=== PATIENT | male | born 1965 | race Caucasian/White ===

== ENCOUNTER 2021-05-12 00:12 | Inpatient (IN) | payer OTHER, SELFPAY ==
[2021-05-12] VITALS (43 sets, daily range): BP systolic 114–165; BP diastolic 55–94; PULSE 62–76; RESP 13–31; TEMP 36.3–37.1; O2SAT 85–99; BMI 34.3
--- NOTE | 2021-05-12 | DI.US.S_ITS ---
PROCEDURE: US ABDOMEN LIMITED INDICATIONS: ELEVATED LFTS; POSSIBLE PORTAL VEIN THROMBOSIS TECHNIQUE: Real-time focused scanning was performed of the abdomen, with image documentation. COMPARISON: [facility], US, US ABDOMEN LIMITED, 06/22/2020, 13:52. FINDINGS: This study is limited by body habitus. The liver demonstrates prominent size. The liver demonstrates generalized moderately increased echogenicity. This decreases ultrasound sensitivity for detection of hepatic masses. The main portal vein is poorly seen, yet demonstrates normal size and demonstrates normal appearing, hepatopetal flow. Blood seen in the gallbladder. The gallbladder wall is minimally thickened, measuring 3.6 mm. No specific pericholecystic fluid is seen. The sonographic Black sign is negative. There is no biliary dilatation, the common bile duct measures 5-6 mm. Pancreas is not seen. No ascites is seen. IMPRESSION: The portal vein is poorly seen, yet is patent. Enlarged, fatty liver. Sludge can be seen within the gallbladder, with minimal gallbladder wall thickening. No additional sonographic signs of cholecystitis are seen. No ascites is seen. Dictated by: Estevan Sage M.D. on 05/12/2021 at 9:24 Approved by: Estevan Sage M.D. on 05/12/2021 at 9:26
[2021-05-12] MEDS: SODIUM CHLORIDE 0.9% 1,000 ML 1000 ML IV (00:23)
[2021-05-12] MEDS: PANTOPRAZOLE 40 MG VIAL IV ×2 (00:23→10:28)
[2021-05-12] MEDS: LIDOCAINE 2% (GLYDO) 6 ML GEL TOP (00:24)
[2021-05-12] MEDS: LIDO 1%/SOD BICARB 8.4% (10ML) 10 ML SYRINGE INJ (00:24)
[2021-05-12] MEDS: PHENobarbital 65 MG/ML VIAL 260 MG IV (00:28)
[2021-05-12 00:31] LABS: INR 1.4 (0.9-1.3); Prothrombin Time 15.7 SECONDS (10.1-12.7)
[2021-05-12 00:34] LABS: Add Manual Diff / Slide Review NO; Ammonia (NH3) 20 umol/L (9-30); Basophils Absolute Auto 200 /uL (0-100); Basophils Percent Auto 2.4 % (0-2); Eosinophils Absolute Auto 200 /uL (0-450); Eosinophils Percent Auto 2.7 % (2-4); Hematocrit 35.9 % (41-53); Hemoglobin 12.1 g/dL (13.5-17.5); Lymphocytes Absolute Auto 1400 /uL (1100-4500); Mean Corpuscular HGB Conc 33.7 % (30-36); Mean Corpuscular Hemoglobin 30.5 PG (26-34); Mean Corpuscular Volume 90.5 fL (80-100); Monocytes Absolute Auto 1200 /uL (0-900); Monocytes Percent Auto 16.1 % (3-14); Neutrophils Absolute Auto 4400 /uL (1500-7000); Neutrophils Percent Auto 59.8 % (50-75); Platelet Count 59 X10^3/uL (150-400); Red Blood Cell Count 3.97 X10^6/uL (4.5-5.9); Red Cell Distribution Width 16.5 % (11.6-14.8); White Blood Cell Count 7.4 X10^3/uL (4.5-11.0)
[2021-05-12 00:35] LABS: Ethanol (ETOH) < 10 mg/dL
[2021-05-12 00:36] LABS: Alanine Aminotransferase 33 IU/L (<50); Albumin 3.8 g/dL (3.5-5.0); Albumin Globulin Ratio 0.9 (1.0-2.8); Alkaline Phosphatase 173 U/L (38-126); Aspartate Aminotransferase 124 IU/L (17-59); BUN Creatinine Ratio 16.5 (6-22); Bilirubin Total 9.7 mg/dL (0.2-1.3); Blood Urea Nitrogen 17 mg/dL (9-20); Calcium 9.1 mg/dL (8.4-10.2); Carbon Dioxide 27 mmol/L (22-32); Chloride 96 mmol/L (98-107); Estimated Glomerular Filt Rate > 60.0 mL/min (>60); Globulin 4.1 g/dL (1.7-4.1); Glucose 163 mg/dL (70-100); HEMOLYSIS < 15 (0-50); Lipase 312 U/L (23-300); Magnesium 1.6 mg/dL (1.6-2.3); Potassium 3.8 mmol/L (3.4-5.1); Sodium 136 mmol/L (137-145); Total Protein 7.9 g/dL (6.3-8.2)
--- NOTE | 2021-05-12 01:13 | P.HP_ITS ---
History of Present Illness History of Present Illness Date Patient Seen: 05/12/21 Time Patient Seen: 02:00 Chief complaint: seizure, tongue hemorrhage Narrative: Mr. Banks is a 55M with PMH of EtOH abuse, EtOH cirrhosis who presents to the hospital after a seizure, found to have significant tongue laceration. History obtained from patient and . Patient has a long history of EtOH abuse and has had EtOH seizure and withdrawal in the past. Has been to inpatient rehab and tried to quit in the past. He was apparently admitted to [facility] one year ago and diagnosed with cirrhosis and found to have esophageal varices, he is currently on nadolol. Last EGD was this year, but unclear exactly when. He also has had ascites in the past, required para centesis, and is currently on spironolactone. He has had more difficulty with drinking this year, he states he thinks he drinks 3 alcoholic drinks a day usually. His last drink was 24 hours ago. He said for months he has felt anxious, he notes especially after stopping drinking his anxiety and tremu lousness increased. Prior to arrival he had a witnessed tonic clonic seizure episode. He was brought in to the ED. In the ED workup was done, vitals notable for hypoxemia with his O2 in the 80s. Labs notable for WBC 7.4, hgb 12.1, plts 59, ammonia 20, EtOH not detectable. INR 1.4, Na 136. Creatinine 1.03, Bilirubin 9.7, AST 124, ALT 33, alk phos 173. He was actively bleeding from a large tongue laceration. ENT was consulted and came to the ED and performed bedside hemostasis with suturing of his tongue laceration. He did have tongue swelling and did get dexamethasone, and IV unasyn. He also received 260mg IV phenobarbital. He was admitted for further treatment. Family history: Father with lung cancer, Patient History Family & Social History Safety & Behavioral: Feels Safe in Current Yes Environment Tobacco & Substance use: Smoking Status Never smoker alcohol intake frequency 3 or more drinks per day Substance Use Type does not use Meds Home Medications and Allergies Allergies Allergy/AdvReac Type Severity Reaction Status Date / Time sulfamethoxazole Allergy Verified 05/12/21 01:13 PDT [From Bactrim] trimethoprim [From Bactrim] Allergy Verified 05/12/21 01:13 PDT Review of Systems Review of Systems Narrative: 14 systems reviewed and negative aside from what is noted in HPI Exam Vital Signs (past 8 hours): - 05/12/21 00:14 05/12/21 00:20 05/12/21 00:30 Temperature 97.3 F L Pulse Rate 63 63 62 Respiratory Rate 18 23 21 Blood Pressure 114/66 Pulse Oximetry 85 L 91 93 05/12/21 00:31 05/12/21 01:00 PDT 05/12/21 01:32 PDT Temperature Pulse Rate 63 69 71 Respiratory Rate 20 17 20 Blood Pressure 138/75 136/72 144/94 H Pulse Oximetry 94 97 98 Oxygen Delivery Method Room Air Narrative Exam Narrative: GEN: mildly anxious HEENT: large laceration sutured, with moderate tongue swelling, no active bleeding, PERRL NECK: trachea midline, no JVD CV: regular rate and rhythm, no murmurs PULM: clear bilaterally, no wheezes, rhonchi, rales ABD: soft, nontender, nondistended, no organomegaly, normal bowel sounds EXT: warm and well perfused with no edema NEURO: awake and alert, no focal deficits, tremulous PSYCH: pleasant, anxious Objective Labs Result Diagrams: 05/12/21 00:14 05/12/21 00:14 Labs: Laboratory Results - last 24 hr 05/12/21 05/12/21 05/12/21 00:14 00:14 00:14 WBC 7.4 RBC 3.97 L Hgb 12.1 L Hct 35.9 L MCV 90.5 MCH 30.5 MCHC 33.7 RDW 16.5 H Plt Count 59 L Neut % (Auto) 59.8 Lymph % (Auto) 19.0 L [place] % (Auto) 16.1 H Eos % (Auto) 2.7 Baso % (Auto) 2.4 H Neut # (Auto) 4400 Lymph # (Auto) 1400 [place] # (Auto) 1200 H Eos # (Auto) 200 Baso # (Auto) 200 H PT INR Sodium Potassium Chloride Carbon Dioxide BUN Creatinine Estimated GFR BUN/Creatinine Ratio Glucose Calcium Magnesium Total Bilirubin AST ALT Alkaline Phosphatase Ammonia 20 Total Protein Albumin Globulin Albumin/Globulin Ratio Lipase Ethyl Alcohol < 10 05/12/21 05/12/21 00:14 00:14 WBC RBC Hgb Hct MCV MCH MCHC RDW Plt Count Neut % (Auto) Lymph % (Auto) Cocke % (Auto) Eos % (Auto) Baso % (Auto) Neut # (Auto) Lymph # (Auto) [place] # (Auto) Eos # (Auto) Baso # (Auto) PT 15.7 H INR 1.4 H Sodium 136 L Potassium 3.8 Chloride 96 L Carbon Dioxide 27 BUN 17 Creatinine 1.03 Estimated GFR > 60.0 BUN/Creatinine Ratio 16.5 Glucose 163 H Calcium 9.1 Magnesium 1.6 Total Bilirubin 9.7 H AST 124 H ALT 33 Alkaline Phosphatase 173 H Ammonia Total Protein 7.9 Albumin 3.8 Globulin 4.1 Albumin/Globulin Ratio 0.9 L Lipase 312 H Ethyl Alcohol Assessment & Plan Assessment & Plan narrative: Mr. Banks is a 55M with PMH of EtOH abuse, EtOH cirrhosis who presents with a seizure and alcohol withdrawal complicated by tongue bite with laceration, bleeding and traumatic macroglossia. 1. Alcohol withdrawal with seizure, acute -patient states he drinks approx 3 etoh drinks daily, suspect may be minimizing -last drink 24 hours prior to presentation -received 260mg IV phenobarb in ED -on exam still withdrawing, will order additional 130mg IV -order IV phenobarb 130m IV q1hr PRN for RASS>1 -SW, dietary consult, patient interested in quitting drinking -IV thiamine, MVI, folate ordered 2. Tongue laceration with arterial bleeding, traumatic macroglossia -s/p repair with ENT, Dr. Landon -did received IV dexamethasone -monitor closely for airway compromise -ice tongue as much as possible -trend hemoglobin closely -ENT recs if bleeding further hold pressure, follow up in ENT as outpatient in 1-2 weeks, continue IV unasyn 3. Alcoholic cirrhosis with history of decompensation due to ascites and esophageal varices, MELD 20 on admit -bilirubin on admission >9, baseline unknown -trend daily -order for abdominal ultrasound, with doppler to eval for portal vein thrombosis -continue nadolol -hold spironolactone given acute bleeding 4. Thrombocytopenia -secondary to EtOH abuse, cirrhosis 5. Anemia -secondary to acute bleeding -trend hemoglobin, transfuse if hgb <7 CODE: Full Proxy: Junie Banks, I have utilized all available immediate resources to obtain, update, or review the patient's current medications. Time Spent With Patient Critical Care time: I spent a total of [] minutes of critical care time on this patient's care today; this time is exclusive of procedural time.
--- NOTE | 2021-05-12 01:18 | ED_ITS ---
HPI - Seizure General Chief Complaint: Seizure Stated Complaint: seizure Time Seen by Provider: 05/12/21 00:19 Source: patient and EMS Mode of arrival: EMS Limitations: altered mental status History of Present Illness HPI Narrative: 55M nonsmoker with extensive history of alcohol abuse and recent diagnosis of liver failure presents by EMS for evaluation witnessed generalized tonic-clonic seizure just prior to arrival. Patient has a significant laceration to the tongue which is bleeding profusely, on arrival EMS found patient to be postictal which has improved significantly prior to his arrival. His vital signs have been stable. He states his last drink was about 24 hours ago. He has gone through withdrawals and has had 1 prior seizure which is likely due to withdrawals. Other than his tongue he has no other injuries. Related Data Allergies Allergy/AdvReac Type Severity Reaction Status Date / Time sulfamethoxazole Allergy Verified 05/12/21 01:13 PDT [From Bactrim] trimethoprim [From Bactrim] Allergy Verified 05/12/21 01:13 PDT Review of Systems Review of Systems Narrative: GENERAL: Denies chills, fatigue, malaise, fever, sweats. HEENT: See HPI RESPIRATORY: Denies dyspnea, cough, wheezing, hemoptysis, sputum. CARDIOVASCULAR: Denies chest pain, palpitations, orthopnea, edema, GASTROINTESTINAL: Denies nausea, vomiting, abdominal pain, diarrhea, constipation, melena. : Denies dysuria, frequency, incontinence, hematuria, urinary retention. MUSCULOSKELETAL: denies weakness, joint pain, or bony pain SKIN: See HPI er NEUROLOGIC: See HPI PSYCHIATRIC: No concerning psychosocial issues. 12 point review of systems is negative except for those stated above Patient History Social History Smoking Status: Never smoker Smoking Status: Never smoker alcohol intake frequency: 3 or more drinks per day Substance Use Type: does not use Exam Narrative Exam Narrative: GENERAL: [55 year old patient appears stated age. Well-developed patient, in obvious distress, still slightly confused HEAD: Atraumatic. Normocephalic. EYES: Pupils equal round and reactive. Extraocular motions intact. Scleral icterus No injection or drainage. ENT: Nose without bleeding, purulent drainage. 4 cm through and through laceration of the tongue, in the midline without crossing lateral edges, there is significant bleeding and an arterial component noted Throat without erythema, tonsillar hypertrophy or exudate. Airway patent. NECK: Trachea midline. Non tender CARDIOVASCULAR: Tachycardic but regular rhythm without murmurs, gallops, or rubs. RESPIRATORY: Clear to auscultation. Breath sounds equal bilaterally. No wheezes, rales, or rhonchi. GASTROINTESTINAL: Abdomen soft, non-tender, nondistended. EXTREMITIES: No edema or joint tenderness. BACK: Nontender without deformity or crepitance. No flank tenderness. NEURO: Alert but still confused on arrival SKIN: Jaundice Initial Vital Signs Initial Vital Signs: Vital Signs Temperature 97.3 F L 05/12/21 00:14 Pulse Rate 63 05/12/21 00:14 Respiratory Rate 18 05/12/21 00:14 Blood Pressure 114/66 05/12/21 00:14 Pulse Oximetry 85 L 05/12/21 00:14 Procedures Laceration Repair Laceration 1: Site: other (tongue) Size (cm): 4 Description: stellate and irregular Depth: involves muscle layer Local Anesthetic: lidocaine 1% and with bicarb Amount of anesthesia used (mL): 6 Pre-repair: wound explored Skin layer closed with: vicryl Size (cm): 4-0 Number of sutures: 6 Technique: simple, interrupted Subcutaneous layer closed with: vicryl Size: 3-0 Number of sutures: 4 Technique: simple, interrupted Course Orders Ordered: ED Orders 05/12/21 Consult to LEGAL CONSULTANT - [employer] Programmer Stat US abdomen complete Urgent 05/12/21 00:14 Ammonia (NH3) Stat Complete Blood Count AUTO DIFF Stat Comprehensive Metabolic Panel Stat Ethanol (ETOH) Stat Lipase Stat Magnesium Stat Prothrombin Time INR Stat 05/12/21 01:15 COVID19 - ADMIT ([employer] swab/PCR) Stat 05/12/21 01:40 Type and Screen Stat 05/12/21 02:07 Education, smoking cessation ONGOING 05/12/21 02:12 Consult to Dietitian, Adult Routine 05/12/21 02:16 Consult to Tele-title i coordinator Routine 05/12/21 05:00 Basic Metabolic Panel Routine Bilirubin Direct Routine Complete Blood Count AUTO DIFF Routine Hepatic (Liver) Panel Routine Folic Acid (Folic Acid 1 Mg Tablet) 1 mg PO DAILY JUSTIN Multivitamins (Multivitamin 1 Tablet) 1 tab PO DAILY [facility] Pantoprazole Sodium (Pantoprazole 40 Mg Vial) 40 mg IV DAILY JUSTIN Phenobarbital (Phenobarbital 65 Mg/Ml Vial) 130 mg IV Q1H PRN; Protocol PRN Reason: RASS > 1 Thiamine HCl (Thiamine 100 Mg Tablet) 100 mg PO DAILY JUSTIN Stop: 05/14/21 09:01 Discontinued Medications Dexamethasone (Dexamethasone 10 Mg/Ml Vial) 10 mg IV NOW ONE Stop: 05/12/21 01:26 PST Last Admin: 05/12/21 01:33 PDT Dose: 10 mg Documented by: AMANDA Fentanyl (Fentanyl 100 Mcg/2 Ml Inj) 50 mcg IV NOW ONE Stop: 05/12/21 01:32 PST Last Admin: 05/12/21 01:38 PDT Dose: 50 mcg Documented by: SUKH Sodium Chloride (Normal Saline 0.9%) 1,000 mls @ 1,000 mls/hr IV BOLUS ONE Stop: 05/12/21 01:13 PST Last Infusion: 05/12/21 01:48 PST Dose: 0 mls/hr Documented by: Admin: 05/12/21 00:23 Dose: 1,000 mls/hr Documented by: RAND Ampicillin Sodium/Sulbactam (Sodium 3 gm/ Sodium Chloride) 100 mls @ 100 mls/hr IV NOW ONE Stop: 05/12/21 01:16 PST Last Infusion: 05/12/21 01:45 PST Dose: 0 mls/hr Documented by: Admin: 05/12/21 01:21 PDT Dose: 100 mls/hr Documented by: RAND Lidocaine HCl (Lidocaine 2% (Glydo) 6 Ml Gel) 6 ml TOP NOW ONE Stop: 05/12/21 00:18 Last Admin: 05/12/21 00:24 Dose: 6 ml Documented by: RAND Lidocaine/Epinephrine (Lidocaine 1% W/Epi) 1 ml SUBCUT NOW ONE Stop: 05/12/21 01:26 PST Last Admin: 05/12/21 01:35 PDT Dose: 1 ml Documented by: AMANDA Lidocaine/Sodium Bicarbonate (Lido 1%/Sod Bicarb 8.4% (10ml) 10 Ml Syringe) 10 ml INJ NOW ONE Stop: 05/12/21 00:18 Last Admin: 05/12/21 00:24 Dose: 10 ml Documented by: RAND Pantoprazole Sodium (Pantoprazole 40 Mg Vial) 40 mg IV NOW ONE Stop: 05/12/21 00:15 Last Admin: 05/12/21 00:23 Dose: 40 mg Documented by: RAND Phenobarbital (Phenobarbital 65 Mg/Ml Vial) 260 mg IV NOW ONE Stop: 05/12/21 00:20 Last Admin: 05/12/21 00:28 Dose: 260 mg Documented by: RAND Phenobarbital (Phenobarbital 65 Mg/Ml Vial) 130 mg IV NOW ONE Stop: 05/12/21 02:06 Last Admin: 05/12/21 02:17 Dose: 130 mg Documented by: AMANDA Tranexamic Acid (Tranexamic Acid 1,000 Mg Vial) 1,000 mg MM NOW ONE Stop: 05/12/21 01:26 PST Last Admin: 05/12/21 01:35 PDT Dose: 1,000 mg Documented by: AMANDA Consultations Consultation #1: Dr. Landon, ENT, contacted when bleeding, although somewhat slowed, continues despite best efforts that hemostasis. Please see his note for details Vital Signs Vital signs: Vital Signs - 8 hr 05/12/21 00:14 05/12/21 00:20 05/12/21 00:30 Temperature 97.3 F L Pulse Rate 63 63 62 Respiratory Rate 18 23 21 Blood Pressure 114/66 Pulse Oximetry 85 L 91 93 05/12/21 00:31 05/12/21 01:00 PDT 05/12/21 01:32 PDT Temperature Pulse Rate 63 69 71 Respiratory Rate 20 17 20 Blood Pressure 138/75 136/72 144/94 H Pulse Oximetry 94 97 98 05/12/21 01:00 PST 05/12/21 01:01 PST 05/12/21 01:30 PST Temperature Pulse Rate 66 67 69 Respiratory Rate 22 21 18 Blood Pressure 136/72 144/94 H Pulse Oximetry 98 97 05/12/21 02:04 Temperature Pulse Rate 71 Respiratory Rate 15 Blood Pressure 152/85 H Pulse Oximetry 99 MDM - Seizure Lab Data Result diagrams: 05/12/21 00:14 05/12/21 00:14 Labs: Lab Results 05/12/21 05/12/21 05/12/21 Range/Units 00:14 00:14 00:14 WBC 7.4 (4.5-11.0) X10^3/uL RBC 3.97 L (4.5-5.9) X10^6/uL Hgb 12.1 L (13.5-17.5) g/dL Hct 35.9 L (41-53) % MCV 90.5 (80-100) fL MCH 30.5 (26-34) PG MCHC 33.7 (30-36) % RDW 16.5 H (11.6-14.8) % Plt Count 59 L (150-400) X10^3/uL Neut % (Auto) 59.8 (50-75) % Lymph % (Auto) 19.0 L (25-40) % [place] % (Auto) 16.1 H (3-14) % Eos % (Auto) 2.7 (2-4) % Baso % (Auto) 2.4 H (0-2) % Neut # (Auto) 4400 (5964-3210) /uL Lymph # (Auto) 1400 (2947-1940) /uL [place] # (Auto) 1200 H (0-900) /uL Eos # (Auto) 200 (0-450) /uL Baso # (Auto) 200 H (0-100) /uL PT (10.1-12.7) SECONDS INR (0.9-1.3) Sodium (137-145) mmol/L Potassium (3.4-5.1) mmol/L Chloride (98-107) mmol/L Carbon Dioxide (22-32) mmol/L BUN (9-20) mg/dL Creatinine (0.66-1.25) mg/dL Estimated GFR (>60) mL/min BUN/Creatinine Ratio (6-22) Glucose (70-100) mg/dL Calcium (8.4-10.2) mg/dL Magnesium (1.6-2.3) mg/dL Total Bilirubin (0.2-1.3) mg/dL AST (17-59) IU/L ALT (<50) IU/L Alkaline Phosphatase (38-126) U/L Ammonia 20 (9-30) umol/L Total Protein (6.3-8.2) g/dL Albumin (3.5-5.0) g/dL Globulin (1.7-4.1) g/dL Albumin/Globulin Ratio (1.0-2.8) Lipase (23-300) U/L Ethyl Alcohol < 10 ( - 10) mg/dL SARS-CoV-2 (PCR) (Negative) 05/12/21 05/12/21 05/12/21 Range/Units 00:14 00:14 01:15 PST WBC (4.5-11.0) X10^3/uL RBC (4.5-5.9) X10^6/uL Hgb (13.5-17.5) g/dL Hct (41-53) % MCV (80-100) fL MCH (26-34) PG MCHC (30-36) % RDW (11.6-14.8) % Plt Count (150-400) X10^3/uL Neut % (Auto) (50-75) % Lymph % (Auto) (25-40) % [place] % (Auto) (3-14) % Eos % (Auto) (2-4) % Baso % (Auto) (0-2) % Neut # (Auto) (1583-8517) /uL Lymph # (Auto) (0500-0427) /uL [place]more # (Auto) (0-900) /uL Eos # (Auto) (0-450) /uL Baso # (Auto) (0-100) /uL PT 15.7 H (10.1-12.7) SECONDS INR 1.4 H (0.9-1.3) Sodium 136 L (137-145) mmol/L Potassium 3.8 (3.4-5.1) mmol/L Chloride 96 L (98-107) mmol/L Carbon Dioxide 27 (22-32) mmol/L BUN 17 (9-20) mg/dL Creatinine 1.03 (0.66-1.25) mg/dL Estimated GFR > 60.0 (>60) mL/min BUN/Creatinine Ratio 16.5 (6-22) Glucose 163 H (70-100) mg/dL Calcium 9.1 (8.4-10.2) mg/dL Magnesium 1.6 (1.6-2.3) mg/dL Total Bilirubin 9.7 H (0.2-1.3) mg/dL AST 124 H (17-59) IU/L ALT 33 (<50) IU/L Alkaline Phosphatase 173 H (38-126) U/L Ammonia (9-30) umol/L Total Protein 7.9 (6.3-8.2) g/dL Albumin 3.8 (3.5-5.0) g/dL Globulin 4.1 (1.7-4.1) g/dL Albumin/Globulin Ratio 0.9 L (1.0-2.8) Lipase 312 H (23-300) U/L Ethyl Alcohol ( - 10) mg/dL SARS-CoV-2 (PCR) Negative (Negative) MDM Narrative Medical decision making narrative: Patient with a witnessed, generalized tonic clonic seizure and a large complex laceration of the time. Patient requires hospitalization due to the seizure which is most likely a consequence of alcohol withdrawal, also a complex, deep laceration of the tongue which puts patient at significant risk for airway swelling and compromise, patient and family aware of and in agreement with the plan Discharge Plan Departure Patient Disposition: Admitted As Inpatient Clinical Impression: Alcohol withdrawal seizure, Hemorrhage of tongue
[2021-05-12 01:19] LABS: COVID19 - ADMIT (NP swab/PCR) Negative (Negative)
[2021-05-12] MEDS: AMPICILLIN/SULBACTAM 3 GM 3 GM in SODIUM CHLORIDE 0.9% 100 ML IV ×4 (01:21→20:02)
[2021-05-12] MEDS: DEXAMETHASONE 10 MG/ML VIAL IV (01:33)
[2021-05-12] MEDS: LIDOCAINE 1% W/EPI 1 ML SUBCUT (01:35)
[2021-05-12] MEDS: TRANEXAMIC ACID 1,000 MG VIAL 1000 MG MM (01:35)
[2021-05-12] MEDS: fentaNYL 100 MCG/2 ML INJ 50 MCG IV (01:38)
--- NOTE | 2021-05-12 02:02 | P.CONS_ITS ---
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 Despite multiple sutures and pressure by Dr. Alcantara, bleeding persisted and consult was requested for control. Known cirrhosis, decreased platelets, no other known ENT complaints. Meds Home Medications and Allergies Allergies Allergy/AdvReac Type Severity Reaction Status Date / Time sulfamethoxazole Allergy Verified 05/12/21 01:13 PDT [From Bactrim] trimethoprim [From Bactrim] Allergy Verified 05/12/21 01:13 PDT Review of Systems Review of Systems Narrative: See ER note and hospitalist note for details Exam Vital Signs (past 8 hours): - 05/12/21 00:14 05/12/21 00:20 05/12/21 00:30 Temperature 97.3 F L Pulse Rate 63 63 62 Respiratory Rate 18 23 21 Blood Pressure 114/66 Pulse Oximetry 85 L 91 93 05/12/21 00:31 05/12/21 01:00 PDT 05/12/21 01:32 PDT Temperature Pulse Rate 63 69 71 Respiratory Rate 20 17 20 Blood Pressure 138/75 136/72 144/94 H Pulse Oximetry 94 97 98 05/12/21 01:00 PST 05/12/21 01:01 PST 05/12/21 01:30 PST Temperature Pulse Rate 66 67 69 Respiratory Rate 22 21 18 Blood Pressure 136/72 144/94 H Pulse Oximetry 98 97 Oxygen Delivery Method Room Air Narrative Exam Narrative: Well-developed overweight male, grossly alert, in mild distress with active bleeding from the tongue and frequent cough and gag. Cooperative, however for the complete examination and treatment. 4 cm anterior transverse dorsal tongue laceration that was previously sutured with active bleeding primarily from the left portion, with a 3 cm partially through and through ventral laceration extension, lateral borders of the tongue intact, each approximately 1 cm or more. Moderate edema, posterior tongue grossly normal, no other visible trauma the oral cavity. Objective Labs Result Diagrams: 05/12/21 00:14 05/12/21 00:14 Labs: Laboratory Results - last 24 hr 05/12/21 05/12/21 05/12/21 00:14 00:14 00:14 WBC 7.4 RBC 3.97 L Hgb 12.1 L Hct 35.9 L MCV 90.5 MCH 30.5 MCHC 33.7 RDW 16.5 H Plt Count 59 L Neut % (Auto) 59.8 Lymph % (Auto) 19.0 L Petroleum % (Auto) 16.1 H Eos % (Auto) 2.7 Baso % (Auto) 2.4 H Neut # (Auto) 4400 Lymph # (Auto) 1400 [place]roleum # (Auto) 1200 H Eos # (Auto) 200 Baso # (Auto) 200 H PT INR Sodium Potassium Chloride Carbon Dioxide BUN Creatinine Estimated GFR BUN/Creatinine Ratio Glucose Calcium Magnesium Total Bilirubin AST ALT Alkaline Phosphatase Ammonia 20 Total Protein Albumin Globulin Albumin/Globulin Ratio Lipase Ethyl Alcohol < 10 SARS-CoV-2 (PCR) 05/12/21 05/12/21 05/12/21 00:14 00:14 01:15 PST WBC RBC Hgb Hct MCV MCH MCHC RDW Plt Count Neut % (Auto) Lymph % (Auto) Petroleum % (Auto) Eos % (Auto) Baso % (Auto) Neut # (Auto) Lymph # (Auto) [place] # (Auto) Eos # (Auto) Baso # (Auto) PT 15.7 H INR 1.4 H Sodium 136 L Potassium 3.8 Chloride 96 L Carbon Dioxide 27 BUN 17 Creatinine 1.03 Estimated GFR > 60.0 BUN/Creatinine Ratio 16.5 Glucose 163 H Calcium 9.1 Magnesium 1.6 Total Bilirubin 9.7 H AST 124 H ALT 33 Alkaline Phosphatase 173 H Ammonia Total Protein 7.9 Albumin 3.8 Globulin 4.1 Albumin/Globulin Ratio 0.9 L Lipase 312 H Ethyl Alcohol SARS-CoV-2 (PCR) Negative [facility] Tobacco & Substance Use Smoking Status: Never smoker Assessment & Plan Assessment & Plan narrative: 1. Tongue laceration secondary to alcohol withdrawal seizure 2. Arterial tongue hemorrhage requiring operative control Plan: See procedure note for details, bleeding controlled, tongue repaired. With recurrence bleeding, highly recommend direct pressure to the area, may need to inject additional local anesthetic for pain or bleeding as well. Patient received Decadron, tried ice the tongue as much as possible moisturize if necessary. Tentatively follow up in clinic in the next 1-2 weeks could, sooner with any concerns. Patient and his agree with the plan, understands and appreciative. Time Spent With Patient Critical Care time: I spent a total of [] minutes of critical care time on this patient's care today; this time is exclusive of procedural time.
--- NOTE | 2021-05-12 02:10 | PM.OP.1 ---
Operative Date/Time/Diagnoses Date of procedure: 05/12/21 Time of procedure: 02:10 Pre-op diagnosis: Traumatic tongue laceration secondary to seizure, arterial hemorrhage as result, required operative control Post-op diagnosis: same Procedure & Clinicians Procedure: Repair 4 cm dorsal traumatic tongue laceration secondary to bite trauma from seizure, 3 cm ventral extension through and through. Control arterial hemorrhage with electrocautery. Same procedure as scheduled: Yes Indications: 55-year-old male suffered a tonic-clonic seizure secondary to alcohol withdrawal, bite trauma to the tongue with persistent bleeding, consultation requested for control. Following discussion of the material risks benefits complications and alternatives, the patient elected to proceed. Surgeon: Sulaiman Landon Anesthesia Type: Local Operative Notes Findings: 4 cm irregular transverse anterior tongue laceration with intact lateral borders of at least 1 cm each side, good blood supply. 3 cm ventral extension through and through, arterial bleeding described originally from the left proximal extent of the injury. Multiple possible bleeding sources treated with electrocautery following additional local anesthetic. Hemostasis excellent completion. Closure Type: primary Estimated Blood Loss (mL): 50 Procedure in detail: Following verbal consent, with the tongue retracted, the prior sutures placed by the ER physician were removed after electrocautery was in position and ready to use. I injected additional 2% lidocaine 1 100,000 epinephrine throughout the wound. Prior sutures were completely removed and the wound was examined. Suspicious bleeding areas of primarily the left proximal portion were cauterized with suction electrocautery and the wound was inspected throughout for any other possible bleeding sources. Hemostasis was obtained and the wound was irrigated with Betadine and closed in multiple layers, superficial and deep with interrupted 3-0 Vicryl suture, totaling 3 L. tongue viable at completion but edematous, no active bleeding. Tolerated the procedure well without known complication. Post-operative Condition: stable Disposition: Acute Care Plan for aftercare: As discussed with the hospitalist, ER physician, and patient, he has received Decadron and IV antibiotics, ice the tongue as much as possible, follow-up as outpatient in 1-2 weeks or as needed, hold pressure for any recurrence bleeding, and/or injected additional local anesthetic.
[2021-05-12] MEDS: PHENobarbital 65 MG/ML VIAL 130 MG IV ×2 (02:17→15:14)
[2021-05-12] MEDS: MORPHINE 2 MG/ML INJ IV (03:21)
[2021-05-12] MEDS: THIAMINE 100 MG TABLET PO (03:40)
[2021-05-12 03:52] LABS: Appearance Urine UA CLEAR; Bilirubin Urine UA 3+ (NEGATIVE); Glucose Urine UA TRACE g/dL (Negative); Ketones Urine UA TRACE (NEGATIVE); Leukocyte Esterase Urine UA NEGATIVE (NEGATIVE); Nitrite Urine UA NEGATIVE (Negative); Occult Blood Urine UA 2+ (Negative); Protein Urine UA 2+ (Negative); pH Urine UA 6.5 (4.5-8.0)
[2021-05-12 04:00] LABS: Basophils Absolute Auto 0 /uL (0-100); Basophils Percent Auto 1.3 % (0-2); Eosinophils Absolute Auto 0 /uL (0-450); Eosinophils Percent Auto 0.4 % (2-4); Hematocrit 32.7 % (41-53); Hemoglobin 11.1 g/dL (13.5-17.5); Lymphocytes Absolute Auto 500 /uL (1100-4500); Lymphocytes Percent Auto 15.2 % (25-40); Mean Corpuscular HGB Conc 33.9 % (30-36); Mean Corpuscular Hemoglobin 30.6 PG (26-34); Mean Corpuscular Volume 90.1 fL (80-100); Monocytes Absolute Auto 200 /uL (0-900); Monocytes Percent Auto 5.6 % (3-14); Neutrophils Absolute Auto 2600 /uL (1500-7000); Neutrophils Percent Auto 77.5 % (50-75); Red Blood Cell Count 3.63 X10^6/uL (4.5-5.9); Red Cell Distribution Width 16.2 % (11.6-14.8); White Blood Cell Count 3.3 X10^3/uL (4.5-11.0)
[2021-05-12 04:07] LABS: Color Urine UA Amber
[2021-05-12 04:08] LABS: Ictotest Urine Positive (Negative)
[2021-05-12 04:11] LABS: Add Manual Diff / Slide Review SLIDE REVIEW
[2021-05-12 04:24] LABS: Alanine Aminotransferase 31 IU/L (<50); Albumin 3.5 g/dL (3.5-5.0); Albumin Globulin Ratio 0.9 (1.0-2.8); Alkaline Phosphatase 143 U/L (38-126); Aspartate Aminotransferase 108 IU/L (17-59); BUN Creatinine Ratio 24.4 (6-22); Bilirubin Conjugated 4.4 md/dL (0.0-0.3); Bilirubin Total 10.3 mg/dL (0.2-1.3); Bilirubin Unconjugated 2.6 mg/dL (0.0-1.1); Blood Urea Nitrogen 20 mg/dL (9-20); Calcium 8.4 mg/dL (8.4-10.2); Carbon Dioxide 26 mmol/L (22-32); Chloride 99 mmol/L (98-107); Estimated Glomerular Filt Rate > 60.0 mL/min (>60); Globulin 3.9 g/dL (1.7-4.1); Glucose 203 mg/dL (70-100); HEMOLYSIS < 15 (0-50); Potassium 4.2 mmol/L (3.4-5.1); Sodium 134 mmol/L (137-145); Total Protein 7.4 g/dL (6.3-8.2)
[2021-05-12 04:57] LABS: Bacteria Urine None Seen; Hyaline Casts Urine 0-1/LPF; Mucus Urine 1+ (Negative); RBC Urine 1-5/HPF (0-5/HPF); WBC Urine 0-1/HPF (0-5/HPF)
[2021-05-12 04:58] LABS: Culture Indicated Urine Cult Not Indicated
--- NOTE | 2021-05-12 05:57 | PC.NURSE ---
Patient reports development of right earache. Hot pack provided for earache.
[2021-05-12 06:16] LABS: Anisocytosis 2+; Platelet Count 32 X10^3/uL (150-400); Platelet Estimate Decreased on smear; RBC Morphology sb
[2021-05-12] MEDS: MORPHINE 4 MG/ML INJ IV ×4 (06:48→20:02)
[2021-05-12] MEDS: THIAMINE 100 MG in SODIUM CHLORIDE 0.9% 100 ML 404 ML IV (10:28)
[2021-05-12] MEDS: MULTIVITAMIN 1 TABLET 1 TAB PO (10:29)
[2021-05-12] MEDS: FOLIC ACID 1 MG TABLET PO (10:29)
[2021-05-13] MEDS: PHENobarbital 65 MG/ML VIAL 130 MG IV ×2 (00:51→02:21)
[2021-05-13] MEDS: AMPICILLIN/SULBACTAM 3 GM 3 GM in SODIUM CHLORIDE 0.9% 100 ML IV ×2 (00:55→06:15)
[2021-05-13 01:30] VITALS: BP 131/66; PULSE 72; RESP 18; TEMP 37; O2SAT 99
[2021-05-13 05:00] VITALS: BP 114/54; PULSE 65; RESP 19; TEMP 36.8; O2SAT 97
[2021-05-13] MEDS: PANTOPRAZOLE 40 MG VIAL IV (07:55)
[2021-05-13] MEDS: MULTIVITAMIN 1 TABLET 1 TAB PO (07:55)
[2021-05-13] MEDS: THIAMINE 100 MG in SODIUM CHLORIDE 0.9% 100 ML 404 ML IV (07:55)
[2021-05-13] MEDS: FOLIC ACID 1 MG TABLET PO (07:56)
[2021-05-13] MEDS: MORPHINE 4 MG/ML INJ IV (07:56)
[2021-05-13 08:47] VITALS: O2SAT 96
[2021-05-13] MEDS: FUROSEMIDE 20 MG TABLET 40 MG PO (09:36)
[2021-05-13] MEDS: SPIRONOLACTONE 25 MG TABLET 100 MG PO (09:36)
--- NOTE | 2021-05-13 12:00 | PC.NURSE ---
Discharge order received and discharge packet reviewed with patient and his , patient states understanding and has no further questions or concerns at this time. Patient states he will call to schedule his follow up appointment with ENT. Patient declined wheelchair escort out, patient walked to his car with his and this RN, tolerated well. Discharged to home with his . Instructed to seek care for new or worsening symtpoms, or to report any signs of infection to PCP.
--- NOTE | 2021-05-13 15:08 | P.DS_ITS ---
History of Present Illness History of Present Illness Chief complaint: seizure, tongue hemorrhage Narrative: 55-year-old male with ETOH cirrhosis, alcohol dependency, diabetes admitted with alcohol withdrawal seizure and secondary tongue laceration. Discharge Providers Provider Date of admission: 05/12/21 06:15 Discharge Date: 05/13/21 Consults: 05/12/21 Consult to [facility] [place] - Donor Relations Manager Stat Comment: etoh abuse [employer] Consult: Substance Abuse Assess 05/12/21 02:12 Consult to Dietitian, Adult Routine Comment: Reason For Exam: etoh abuse 05/12/21 02:16 Consult to Tele-porcelain slusher Routine Comment: Consulting Provider: [facility] [employer] Reason for consultation: [employer] services Discharge provider: Ming Hoover MD Summary Hospital Course Discharge Diagnosis: 1. Alcohol withdrawal seizure 2. Tongue laceration 3. ETOH cirrhosis 4. Diabetes Patient was treated with IV phenobarb for ETOH withdrawal seizure. He had no further events. He had a large tongue laceration which was repaired in the ER by Dr. Landon. He also got 1 dose of IV dexamethasone for tongue swelling. He was stable overnight. He is able to take liquids by mouth to maintain hydration. He is discharged in stable condition. Status at Discharge Cognitive/behavioral status at discharge: oriented Functional status at discharge: independent ambulation Overall status at discharge: patient is progressing back to baseline Exam Vital Signs (past 8 hours): - 05/13/21 08:47 Pulse Oximetry 96 Oxygen Delivery Method Room Air Oxygen Flow Rate 0 Narrative Exam Narrative: General: Alert and very pleasant and cooperative male in no acute distress The tongue is moderately swollen, non bleeding, laceration repair intact. Patient is speaking and not having any issues as far as airway obstruction. Objective Labs Result Diagrams: 05/12/21 03:35 05/12/21 03:35 [facility] Social History household members: spouse Smoking Status: Never smoker Discharge Plan Discharge Plan Patient Disposition: Home Provider Discharge Comment: You were treated for alcohol withdrawal seizure and tongue laceration. Follow up with ENT Dr Landon in 1 to 2 weeks. Monitor blood sugars and hold insulin if running close to normal and not eating usual amounts. You can also do 1/2 dose insulin if blood sugars start running higher (above 160) but you're not back to normal diet. Resume AA meetings and continue alcohol cessation. Discharge orders & Medications Prescriptions: Continued Lantus U-100 Insulin 100 unit/mL solution 50 unit SUBCUT DAILY RF: 0 spironolactone 25 mg tablet 100 mg PO DAILY RF: 0 pantoprazole [Protonix] 40 mg Tablet,Delayed Release (Dr/Ec) 40 mg PO BID RF: 0 nadolol 40 mg tablet 40 mg PO DAILY RF: 0 furosemide 20 mg tablet 40 mg PO DAILY RF: 0 Medication counseling provided by Pharmacist: Yes Follow up/Referrals: Sulaiman Landon MD [Physician] - (*Appt on Thursday. at 0930 with 0915 check in time. . [phone] 1-2 week hospital follow s/p tongue laceration repair.) Diet/Activity/Treatments Diet: Diet as Tolerated Visit Report/Discharge Packet Instructions: DI for Laceration Repair, DI for Alcohol Use Disorder
== END 2021-05-13 12:02 | disposition home or self-care (01) | DRG 897 ==
LOC: ED 02:54 → AC 06:16
PROVIDERS: Admitting Provider Internal Medicine; Emergency Provider Emergency Medicine; Referring Provider Emergency Medicine; Visit Provider Internal Medicine
DX: F10.139 Alcohol abuse with withdrawal, unspecified (principal); D62 Acute posthemorrhagic anemia; S01.512A Laceration without foreign body of oral cavity, initial encounter; D69.59 Other secondary thrombocytopenia; K70.30 Alcoholic cirrhosis of liver without ascites; R56.9 Unspecified convulsions; Y90.0 Blood alcohol level of less than 20 mg/100 ml; E11.9 Type 2 diabetes mellitus without complications; Z20.822 Contact with and (suspected) exposure to COVID-19; Z79.4 Long term (current) use of insulin
CPT/HCPCS: 41252; 76705; 80048; 80053; 80076; 80320; 81001; 82140; 82248; 82962; 83690; 83735; 85025; 85610; 86850; 86900; 86901; 87635; 94762; 96361; 96365; 96372; 96375; 99284; 99291; 99292; C9803; C9113; J0295; J1100; J1815; J2270; J2560; J3010